=== PATIENT | female | born 1970 | race Caucasian/White ===

== ENCOUNTER → 2018-03-27 11:01 | Outpatient (CLI) | payer OTHER, SELFPAY ==
[2018-04-02 10:30] LABS: HPV Reflexed? NOT INDICATED
== END ==
PROVIDERS: Visit Provider Obstetrics & Gynecology
DX: R87.610 Atypical squamous cells of undetermined significance on cytologic smear of cervix (ASC-US) (principal)
CPT/HCPCS: 88175; G0145

== ENCOUNTER → 2018-07-26 14:58 | Outpatient (CLI) | payer OTHER, SELFPAY ==
[2017-08-03 10:26] VITALS: BMI 24.8
[2018-07-26 16:05] LABS: Hemoglobin A1c 6.1 % (4.2-6.3)
[2018-07-26 16:36] LABS: Progesterone Level 0.14 ng/mL (See Comment)
[2018-07-26 16:37] LABS: Estradiol 68.9 pg/mL; Free T3 2.9 pg/mL (2.18-3.98); T4 Free Direct 0.94 ng/dL (0.76-1.46); Thyroid Stim Hormone (TSH) 2.47 uIU/mL (0.358-3.74)
[2018-07-31 11:32] LABS: HPV Reflexed? NOT INDICATED
--- OUTSIDE RECORDS SUMMARY | 2018-10-30 06:13 | XMS RPT_ITS ---
:1970 Author Organization [email or web address] Address [address] [place] [address] Phone Care Team Providers Name Role Phone Jairo Torres MD Unavailable Reason for Visit Reason For Visit Description Start Date New - 1st visit with practice Preliminary reason for visit data, not yet signed by the author as of left wrist pain Preliminary reason for visit data, not yet signed by the author as of Chief Complaint Chief Complaint Description Start Date left wrist pain Preliminary chief complaint data, not yet signed by the author as of Instructions Instruction Description Start Date CompletedPatient advised to follow-up with Primary Care Physician for BMI management. Plan of Care Type Date Detail Appointment 08:15 AM Jairo Torres MD, [address] [address], [place], [address], Pending order XR WRIST 3 VWS-LT Medications Medication Instructions Start Date Stop Date Generic Name NDC Provider Observed no known medications at Conditions or Problems Problem Name Problem Onset Status Entry Provider Comment Standard Annotate Code Date Date Description Radial styloid M65.4 Active Jairo Tang Radial styloid tenosynovitis (ICD-10-C /21 05/03 Brian lugoosynovitis [Cabrera] Katy ANDERSON [Cabrera] Allergies, Adverse Reactions, Alerts Allergy Name Reaction Start Date Severity Status Provider Description PENICILLIN doesn't remember Critical Active Jairo Torres MD IODINE rash Critical Active Jairo Torres MD CODEINE PHOSPHATE skin crawls Critical Active Jairo Torres MD Social History Concept Description Observation Name Observation Value Units Start Date 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 social history data, not yet signed by the author as of Vital Signs Date Name Value Unit Description BMI (Body Mass 26.40 kg/m2 Body Mass Index Index) [Ratio] Preliminary vital sign data, not yet signed by the author as of BP Diastolic 73 mm[Hg] blood pressure, diastolic Preliminary vital sign data, not yet signed by the author as of BP Systolic 116 mm[Hg] blood pressure, systolic Preliminary vital sign data, not yet signed by the author as of Heart Rate 68 /min pulse rate E&M Preliminary vital sign data, not yet signed by the author as of Height 68 [in_us] height E&M Preliminary vital sign data, not yet signed by the author as of Height 173 cm height in centimeters E&M Preliminary vital sign data, not yet signed by the author as of Weight Measured 173 [lb_av] weight E&M Preliminary vital sign data, not yet signed by the author as of Weight Measured 79 kg weight in kilograms E&M Preliminary vital sign data, not yet signed by the author as of Results Date Name Value Unit Range Flag Description Office Visit: New - 1st visit with practice, Rm: MEDS REVIEW Done Documentation of current medications (procedure) Preliminary observation data, not yet signed by the author as of NKMED T Documentation of current medications (procedure) Preliminary observation data, not yet signed by the author as of Preliminary observation data, not yet signed by the author as of MRI HX of the left wrist MRI (magnetic on 03/06/2018 at [facility]) history Preliminary observation data, not yet signed by the author as of Clinical Summary: HMSPatientID SOP account number Clinical Lists Update: Preload Extended SMOK STATUS former smoker Tobacco smoking status MIIS Clinical Summary: Scanned History Summary DEPEXER FREQ 7 days per week Data entered by patient exercise frequency DEP EXERTYP walking Data entered by patient exercise type DEP EXERCISE Yes data entered by patient, exercise history DEP DRUG USE No data entered by patient, drug (of abuse) use DEP FSMO 2007 data entered by patient, social history, former smoker DEP CSMO former smoker data entered by patient, social history, current smoker DEP ETOH USE No data entered by patient, alcohol (ethanol or ETOH) use [facility] 3+ floors housing unit size (asthma environmental history, housing) (from single family to don't know) #DEP CHLDRN Yes Number of dependent children SWHOUTYPE house Housing Type: apartment, house, assisted, trailer, none DEP MAST data entered by patient, social history, marital status 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 data entered by [employer] patient, social history, occupation [employer]P EMPLOYER employed data entered by patient, Employer Name DEP ALG LIST CodeineIodinePenicillin Data entered by patient, allergy list SIS H COM as an infant medical history of patient's sister, comments [facility] COM PTST - Severe Depression medical history of patient's brother(s), comments BROTHERS PM AlcoholismArthritis medical history of patient's brother(s) DEATHCAU MOM murdered cause of , mother MOTHER A/D mother of patient is alive or DEP MOM PMH Alcoholism data entered by patient, mother's medical history FATHER A/D Alive father of patient is alive or DEP DAD PM ArthritisCOPDTuberculosis data entered by patient, father's medical history DEP PMH Cancer data entered by patient, past medical history DEP SURGERY Breast surgery other Data entered by patient, history of past surgeries Procedures Code Procedure Name Date Entry Date CPT-20826 Occupational Therapy L3808 [facility] CUSTOM STATIC CPT-90871 Tendon Sheath injection CPT-J0702 Injection - betamethasone acetate 3 mg and betamethasone sodium phosphate 3 mg G8730 Pain assessment documented as positive - follow-up documented G8427 Current medications documented 1036F Tobacco screening was negative - non user G8417 BMI documented as above normal parameters - follow-up documented G8783 Blood pressure within normal parameters - no follow-up required [id number] Patient Encounter Medications Administered No information available. Immunizations No information available. Advance Directives There may be information available, but it has not been provided by the sender. Assessments There may be information available, but it has not been provided by the sender. Review of Systems There may be information available, but it has not been provided by the sender. Family History There may be information available, but it has not been provided by the sender. History of Past Illness There may be information available, but it has not been provided by the sender. History of Present Illness There may be information available, but it has not been provided by the sender.
--- OUTSIDE RECORDS SUMMARY | 2018-10-30 06:14 | XMS RPT_ITS ---
:1970 Author Organization OHIP Care Team Providers Name Role Phone Clary Salmeron Attending Unavailable Clary Salmeron Attending Unavailable CORTNEY LAYNE Attending Unavailable CORTNEY LAYNE Primary Care Unavailable CORTNEY LAYNE Admitting Unavailable Josh Du Attending Unavailable [facility] Primary Care Unavailable Sarina Rojas Admitting Unavailable Sarina Rojas Attending Unavailable CORTNEY LAYNE Primary Care Unavailable Sarina Rojas Referring Unavailable Sarina Rojas Admitting Unavailable Sarina Rojas Attending Unavailable [facility] Primary Care Unavailable [facility] Consulting Unavailable Jesse Cui Attending Unavailable [facility] Primary Care Unavailable Jesse Cui Admitting Unavailable Jesse Cui Attending Unavailable [facility] Primary Care Unavailable Jesse Cui Admitting Unavailable Jesse Cui Admitting Unavailable Jesse Cui Attending Unavailable [facility] Primary Care Unavailable Jesse Cui Attending Unavailable [facility] Primary Care Unavailable Josee Kingston Attending Unavailable [facility] Primary Care Unavailable Josee Kingston Admitting Unavailable Bob TOBACCO PACKING MACHINE OPERATOR, Sarina Admitting Unavailable Bob BURKS, Sarina Attending Unavailable PROBLEMS PROBLEMS DATE TYPE CONDITION / CODE ATTENDING STATUS SOURCE 07/26/2018 Unknown Z12.4 - Encounter Clary Salmeron for screening for [facility] malignant neoplasm Hospital of cervix / Repository Z12.4(ICD-10) 07/26/2018 Unknown N92.6 - Irregular Clary Salmeron Active [place] menstruation, [facility] unspecified / Hospital N92.6(ICD-10) Repository 03/27/2018 Unknown R87.610 - Atypical Clary Salmeron squamous cells of [facility] undetermined Hospital significance on Repository cytologic smear of cervix (ASC-US) / R87.610(ICD-10) PROCEDURES PROCEDURES No Procedure Records FoundRESULTS RESULTS HEMOGLOBIN A1C Collected: 07/26/2018 Status: F Source: [place] 3:03 PM [facility] REPOSITORY TYPE CODE TESTS RESULT OUT OF RANGE REFERENCE UNITS LAB L501.9985 4.2-6.3 % Normal HGB A1C 6.1 Performed By: #### L501.9985 #### [facility] [address] [place], [place], [address] TESTOSTERONE, SERUM TOTAL Collected: 07/26/2018 Status: F Source: [place] 3:03 PM [facility] REPOSITORY TYPE CODE TESTS RESULT OUT OF REFERENCE UNITS RANGE LAB L509.3000 ng/dL Testosterone Normal 16.68 Result Comment: NORMAL REFERENCE RANGES MALE AGE <50 123.06 - 813.86 ng/dL MALE AGE >50 89.98 - 780.10 ng/dL FEMALE PREMENOPAUSE AGE 21 - 60 9.01 - 47.94 ng/dL FEMALE POSTMENOPAUSE AGE 45 - 89 <7.00 - 45.62 ng/dL REFERENCE RANGE AND METHODOLOGY CHANGED 08/01/2017 Performed By: #### L509.3000, L509.4001 #### [facility] [address] [place], [place], [address] PROGESTERONE LEVEL Collected: 07/26/2018 Status: F Source: [place] 3:03 PM [facility] REPOSITORY TYPE CODE TESTS RESULT OUT OF REFERENCE UNITS RANGE LAB L509.4001 See Comment ng/mL Progesterone Normal 0.14 Result Comment: Progesterone Reference Table: UNITS Female: Follicular 0.15 - 1.40 ng/mL Luteal 3.34 - 25.56 ng/mL Mid-luteal 4.44 - 28.03 ng/mL Postmenopausal 0.0 - 0.73 ng/mL : 1st Trimester 11.22 - 90.00 ng/mL 2nd Trimester 25.55 - 89.40 ng/mL 3rd Trimester 48.40 -422.50 ng/mL Performed By: #### L509.3000, L509.4001 #### [facility] [address] [place], [address] FREE T3 Collected: 07/26/2018 Status: F Source: [place] 3:03 PM [facility] REPOSITORY TYPE CODE TESTS RESULT OUT OF RANGE REFERENCE UNITS LAB L501.35278 2.18-3.98 pg/mL Normal FREE T3 2.9 Performed By: #### L501.29703, L501.9520, L506.0400, L3300.1750 #### [facility] [address] [place], [address] THYROID STIM HORMONE Collected: 07/26/2018 Status: F Source: [place] (TSH) 3:03 PM [facility] REPOSITORY TYPE CODE TESTS RESULT OUT OF RANGE REFERENCE UNITS LAB L501.9520 0.358-3.74 uIU/mL Normal TSH 2.47 Performed By: #### L501.48825, L501.9520, L506.0400, L3300.1750 #### [facility] [address] [place], [address] T4 FREE DIRECT Collected: 07/26/2018 Status: F Source: [place] 3:03 PM [facility] REPOSITORY TYPE CODE TESTS RESULT OUT OF RANGE REFERENCE UNITS LAB L506.0400 0.76-1.46 ng/dL Normal T4 FREE 0.94 DIRECT Performed By: #### L501.48821, L501.9520, L506.0400, L3300.1750 #### [facility] [address] [place], [address] ESTRADIOL Collected: 07/26/2018 Status: F Source: [place] 3:03 PM [facility] REPOSITORY TYPE CODE TESTS RESULT OUT OF RANGE REFERENCE UNITS LAB L3300.1750 pg/mL Normal ESTRADIOL 68.9 Result Comment: NORMAL REFERENCE RANGES FEMALE FOLLICULAR 21.4 - 164.8 pg/mL MID-CYCLE PEAK 49.9 - 367.2 pg/mL LUTEAL 40.2 - 259.0 pg/mL POST-MENOPAUSAL ON MHT <11.0 - 462.1 pg/mL NOT ON MHT <11.0 - 58.3 pg/mL MALE <11.0 - 52.5 pg/mL NOTE: [facility] HAS CONFIRMED THE DRUG FULVETRANT (FASLODEX) MAY CAUSE FALSELY ELEVATED ESTRADIOL RESULTS WHEN USING THIS TEST METHOD. IF PATIENT IS TAKING FULVESTRANT AN ALTERNATIVE METHOD SHOULD BE USED TO DETERMINE ESTRADIOL CONCENTRATION. Performed By: #### L501.93352, L501.9520, L506.0400, L3300.1750 #### [facility] [address] [place], [address] PAP I-G W/RFX HRHPV Collected: 07/26/2018 Status: F Source: [place] 2:15 PM [facility] REPOSITORY Order Comment: CYTOLOGY INFORMATION: - CLINICAL INFORMATION: - DATE LMP/MENOPAUSE: 07/23/18 LMP - COLLECTION VIAL: Thin Prep Vial - DISPATCHER TOW TRUCK SOURCE: CERVICAL/ENDOCERVICAL - COLLECTION TECHNIQUE: BRUSH/SPATULA Specimen Comment: [id number] Specimen Comment: Source.............Cervix;Endocervix Specimen Comment: LMP / Prev Treat...[id number] Specimen Comment: No. of containers..01 ThinPrep Vial TYPE CODE TESTS RESULT OUT OF RANGE REFERENCE UNITS LAB L7400.0800 . Normal DIAGN Comment Result Comment: NEGATIVE FOR INTRAEPITHELIAL LESION AND MALIGNANCY. LAB L7400.0900 . Normal ADEQ Comment Result Comment: Satisfactory for evaluation. Endocervical and/or squamous metaplastic cells (endocervical component) are present. LAB L7400.1400 . Normal PERFORM Comment Result Comment: Gloria Henderson Customer Acquisition Manager LAB L7400.2575 . Normal TEST METHOD Comment Result Comment: This liquid based ThinPrep(R) pap test was screened with the use of an image guided system. LAB L7400.2600 . Normal . COMM LAB L7400.2700 . Normal PAPSMR Comment Result Comment: The Pap smear is a screening test designed to aid in the detection of premalignant and malignant conditions of the uterine cervix. It is not a diagnostic procedure and should not be used as the sole means of detecting cervical cancer. Both false-positive and false-negative reports do occur. LAB L7400.2800 . Normal HPV RFLX Comment Result Comment: The HPV DNA reflex criteria were not met with this specimen result therefore, no HPV testing was performed. Performed at: - [facility]TE[place], [place] [id number] Roving Changer: Deysi Ferreira MD, Phone: [phone] Performed By: #### L7400.0350 #### [facility] (refer to report for specific site) refer to report for address and phone number PAP I-G W/RFX HRHPV Collected: 03/27/2018 Status: F Source: [place] 9:00 AM [facility] REPOSITORY Order Comment: CYTOLOGY INFORMATION: - CLINICAL INFORMATION: - DATE LMP/MENOPAUSE: 03/25/18 LMP - COLLECTION VIAL: Thin Prep Vial - DISPATCHER TOW TRUCK SOURCE: CERVICAL/ENDOCERVICAL - COLLECTION TECHNIQUE: BRUSH/SPATULA Specimen Comment: [id number] Specimen Comment: No. of containers..01 ThinPrep Vial TYPE CODE TESTS RESULT OUT OF RANGE REFERENCE UNITS LAB L7400.0800 . Normal DIAGN Comment Result Comment: NEGATIVE FOR INTRAEPITHELIAL LESION AND MALIGNANCY. LAB L7400.0900 . Normal ADEQ Comment Result Comment: Satisfactory for evaluation. Endocervical and/or squamous metaplastic cells (endocervical component) are present. LAB L7400.1400 . Normal PERFORM Comment Result Comment: Norah Mathews, Customer Acquisition Manager (ASCP) LAB L7400.2575 . Normal TEST METHOD Comment Result Comment: This liquid based ThinPrep(R) pap test was screened with the use of an image guided system. LAB L7400.2600 . Normal . COMM LAB L7400.2700 . Normal PAPSMR Comment Result Comment: The Pap smear is a screening test designed to aid in the detection of premalignant and malignant conditions of the uterine cervix. It is not a diagnostic procedure and should not be used as the sole means of detecting cervical cancer. Both false-positive and false-negative reports do occur. LAB L7400.2800 . Normal HPV RFLX Comment Result Comment: The HPV DNA reflex criteria were not met with this specimen result therefore, no HPV testing was performed. Performed at: - [facility] [place] [id number] Roving Changer: Deysi Ferreira MD, Phone: [phone] Performed By: #### L7400.0350 #### [facility] (refer to report for specific site) refer to report for address and phone number XR WRIST 3+ VIEWS Observed: 02/21/2018 Status: F Source: [place] LEFT 9:30 AM [facility] REPOSITORY Exam Date/Time: 02/21/2018 09:37 EDT Reason for Exam: LEFT WRIST PAIN Report STUDY: XR Wrist 3+ Views Left; 02/21/2018 9:37 am INDICATION: LEFT WRIST PAIN. COMPARISON: None. ACCESSION NUMBER(S): [id number] ORDERING CLINICIAN: Sarina Rojas TECHNIQUE: Four views of the left wrist including AP, oblique, navicular cone down and lateral projections were obtained. FINDINGS: There is no evidence of acute fracture or dislocation identified. The joint spaces are well preserved without significant degenerative changes. IMPRESSION: 1. No evidence of acute fracture or dislocation. FINAL REPORT Dictated: 02/21/2018 10:56 am Brayan Alvarado MD Signed (Electronic Signature): 02/21/2018 10:56 am Signed by: Brayan Alvarado MD Technologist: JANN ALLERGIES ALLERGIES DATE TYPE / CODE NAME / CODE REACTION SEVERITY SOURCE 07/31/2017 Drug Penicillins/P348381 Other Unknown [place] Allergy/416 476(RXNORM) [facility] 002809([facility] ED CT) Repository 07/31/2017 Drug iodine/[id number](R Rash Unknown [place] Allergy/416 XNORM) [facility] 261544([facility] ED CT) Repository 07/31/2017 Drug codeine/C371415805( Other Unknown [place] Allergy/416 RXNORM) [facility] 308965([facility] ED CT) Repository Drug/268043 codeine Itch [facility] 003([facility]) System Repository Drug/110775 penicillins ??? Hindu 003([facility]) System Repository Drug/854777 iodine Rash Hindu 003(OMED [facility]) System Repository Drug/761822 Antihistamine Itch Hindu 003([facility] CT) System Repository ENCOUNTERS ENCOUNTERS ADMIT/DISCHARGE ACCOUNT NUMBER ADMITTING ENCOUNTER LOCATION SOURCE CLASS 07/31/2018/ [id number] Josee Kingston Ambulatory [facility] Hindu 0[address] [facility] ng:[facility] Repository om: Room 5 07/26/2018 [id number] [facility] ng:WOBLAB Repository 05/23/2018/ [id number] Ambulatory Samariran Hindu 018 [facility] Medicine[facility]i Repository ng:SamOrtho 04/11/2018/ [id number] Cui, Ambulatory Samariran [facility] 018 Jesse [facility] MedicineBuildi Repository ng:HubertOrthoRoo m: Room 3 03/27/2018 [id number] [facility] ng:LABSPEC Repository 03/18/2018/ [id number] See, Ambulatory Hindu Hindu 018 [facility] ng:[facility] Repository 03/18/[id number] Repository 03/13/2018/ [id number] Ambulatory [facility] Hindu 018 [facility] ng:[facility] Repository 03/07/2018/ [id number] Cui, Ambulatory Samariran Hindu 018 Jesse [facility] MedicineBuildi Repository ng:HubertOrthoRoo m: Room 2 03/05/2018 [id number] Bob BURKS, Ambulatory [facility] Repository 02/28/[id number] [facility] ng:[facility] Repository 02/21/2018/ [id number] Bob [facility] [address] [place] [address] [facility] ng: Y Repository 02/21/2018 [id number] Ambulatory [address] [place] [address] Repository 02/04/2018/ [id number] [place], Ambulatory [facility] 018 [facility] Internal [facility] ng:[facility] Repository om: Room 2 PAYERS PAYERS ENCOUNTER GUARANTOR PAYER SUBSCRIBER SOURCE 07/31/2018 ANITA Garcia Primary Insurance:Tito LARSONB: [facility]: [facility] Number: Effective [id number] [facility] Date:2018-07-31 - [place], [place] [id number] [place] [address]Hpi: Name:CD:[id number] [phone]: [address] [place] [address] () [address]WK: ([phone]) () [phone] () 07/26/2018 Anita Garcia Primary HUTPETRONA Doll [id number] Insurance[facility]: [facility] [id number] Number: Repository [id number]: [phone] [id number] [phone] () Date:2908-57-64FE [address] [place], [place] [address]: 07/26/2018 Secondary NOT GIVENUNK [place] Insurance:SELF PAY [facility] Number: Effective Repository Date:2018-07-26 05/23/2018 ANITA Garcia Primary Insurance:Tito LARSONB: [facility]: [facility] Number: Effective [id number] System [place] Date:2018-04-11 - [place], [place] [id number] [place] [address]Hyi: Name:CD:[id number] [phone]: [address] [place] [address] (HP) [phone]: [phone]) (HP) [phone] (WP) 04/11/2018 ANITA Garcia Primary Insurance:1500 ANITA Bairestan WOODWARDDOB: WORKER'S COMPENSATION WOODWARDB: [facility] - [facility] Number: [id number] [facility] Effective [place] Repository [place] Date:2018-04-11 [place] [address]Csa: [id number] [address]Nst: Name:CD:[id number] (HP) (HP) (WP) 03/27/2018 Anita Radha Primary HUT [place] [id number] Insurance:[facility]: [facility] [id number], [place] Number: Repository [id number]: [phone]) [id number] [phone] () Date:5310-39-60DD [address] [place] [phone]: 03/27/2018 Secondary [facility] [place] Insurance:SELF PAY [facility] Number: Effective Repository Date:2018-03-27 03/18/2018 ANITA Radha Primary ANITA Clifford [facility]: Insurance:[facility]: [facility] Number: Effective [id number] [facility] Date:2018-03-13 - [place] Repository [place] [id number] [place] [address]Wwl: Name:Worker's [phone]: [id number] () [place], [place] ()Tel: [phone]: [phone] (WP) 03/18/2018 ANITA Primary ANITA University [facility]: Insurance:[employer]rial[employer] [facility]: Hospitals licy Number: [id number] [facility] [id number] [place], [place] Date:Plan Name:[place], [place] [id number]: [id number]: (HP) (HP) 03/13/2018 ANITA D Primary Insurance:1500 [facility] A [facility]B: [facility]: [facility] Number: Effective [id number] [facility] Date:2018-02-04 - [place], [place] [id number] [place] [address]Cff: Name:CD:[id number]: [address] [place] [address] (HP) [phone]: [phone]) (HP) [phone] (WP) 03/07/2018 ANITA D Primary Insurance:1500 ANITA [facility]: WORKER'S COMPENSATION [facility]: [facility] - BWCPolicy Number: [id number] [facility] Effective [place], [place] Date:2018-03-07 [place] [address]Irx: [id number] [id number]: Name:CD:[id number] (HP) (HP) (WP) 03/05/2018 Primary ANITA D [facility] Insurance:Health [facility]: [facility] [id number] [facility] Number: [place] Repository [id number], [place] Date:Plan [address]Ubx: (600) Name:[place] [phone] () [place] [address]PH: 02/28/2018 ANITA Garcia Primary ANITA Garcia [facility]: Insurance:[facility]: [facility] Number: Effective [id number] System [place] Date:2018-02-28 - [place], [place] [id number] [place] [address]Iiq: Name:Worker's [phone]: Compensation () () (WP) 02/21/2018 ANITA Garcia Primary ANITA Garcia [facility]: Insurance:[facility]: [facility] Number: Effective [id number] System [place] Date:2018-02-21 - [place], [place] [id number] [place] [address]Mqt: Name:Worker's [phone]: [id number] () [place], [place] ()Tel: [phone]: [phone] () 02/21/2018 ANITA Garcia Primary ANITA Garcia [facility]: Insurance:[facility]: [facility] licy Number: [id number] [facility] [id number] [place], [place] Date:Plan Name:[place], [place] [id number]: [phone]: () () 02/04/2018 ANITA Garcia Primary Insurance:[address] [place] [address]: [facility]ICAL [facility]: [facility] Number: Effective [id number] [facility] Date:2018-02-04 - [place], [place] 8680-85-25[place]eqqWells, [place] [address]Cdw: Name:CD:[id number] [phone]: [address], [place] () [address]VN: [phone]) () [phone] ()
--- OUTSIDE RECORDS SUMMARY | 2018-10-30 06:14 | XMS RPT_ITS ---
:1970 Author Organization [employer] Address [address] [place] [address] Phone Care Team Providers Name Role Phone Jairo Torres MD Unavailable Reason for Visit Reason For Visit Description Start Date Workers Comp - follow-up by complaint Preliminary reason for visit data, not yet [...] Plan of Care Type Date Detail Appointment 09:15 AM Jairo Torres MD, [address] [facility], [address], [place], [address], Appointment 09:30 AM Jairo Torres MD, [address] [facility], [address], [place], [address], Medications Medication Instructions Start Date Stop Date Generic Name NDC Provider Observed no known medications at Conditions or Problems Problem Name Problem Onset Status Entry Provider Comment Standard Annotate Code Date Date Description Primary M19.042 Active Jairo Tang Primary osteoarthritis (ICD-10-C /14 08/26 Brian osteoarthritis left hand M) , left hand Primary M19.041 Active Jairo Tang Primary osteoarthritis (ICD-10-C /14 08/26 Brian osteoarthritis right hand M) , right hand Radial styloid M65.4 Active 2018 Jairo Tang Radial styloid tenosynovitis (ICD-10-C /21 05/03 Brian tenosynovitis [de Quervakevin] Katy ANDERSON [Cabrera] Allergies, Adverse Reactions, Alerts Allergy Name Reaction Start Date Severity Status Provider Description PENICILLIN doesn't remember Critical Active Jairo Torres MD IODINE rash Critical Active Jairo Torres MD CODEINE PHOSPHATE skin crawls Critical Active Jairo Torres MD Social History No information available. Vital Signs Date Name Value Unit Description BMI (Body Mass 26.40 kg/m2 Body Mass Index Index) [Ratio] Preliminary vital sign data, not yet signed by the author as of BP Diastolic 78 mm[Hg] blood pressure, diastolic Preliminary vital sign data, not yet signed by the author as of BP Systolic 119 mm[Hg] blood pressure, systolic Preliminary vital sign data, not yet signed by the author as of Heart Rate 74 /min pulse rate E&M Preliminary vital sign [...] Unit Range Flag Description Office Visit: New Complaint, Rm: MEDS REVIEW Done Documentation of current medications (procedure) Office Visit: Workers Comp - follow-up by complaint, Rm: MEDS REVIEW Done Documentation of current medications (procedure) Preliminary observation data, not yet signed by the author as of Preliminary observation data, not yet signed by the author as of Clinical Summary: HMSPatientID SOP account number SOP account number Procedures Code Procedure Name Date Entry Date CPT-98472 Tendon Sheath injection CPT-J0702 Injection - betamethasone acetate 3 mg and betamethasone sodium phosphate 3 mg G8730 Pain assessment documented as positive - follow-up documented G8427 Current medications documented 1036F Tobacco screening was negative - non user G8417 BMI documented as above normal parameters - follow-up documented G8783 Blood pressure within normal parameters - no follow-up required [facility]-[id number] Patient Encounter Medications Administered No information available. [...]
--- OUTSIDE RECORDS SUMMARY | 2018-10-30 06:14 | XMS RPT_ITS ---
:1970 Author Organization [employer] Address [address] [place] [address] Phone Care Team Providers Name Role Phone Jairo Torres MD Unavailable Reason for Visit Reason For Visit Description Start Date New Complaint Preliminary reason for visit data, not yet signed by the author as of bilateral hand pain Preliminary reason for visit data, not yet signed by the author as of Chief Complaint Chief Complaint Description Start Date bilateral hand pain Preliminary chief complaint data, not yet signed by the author as of Instructions Instruction Description Start Date CompletedPatient advised to follow-up with Primary Care Physician for BMI management. Plan of Care Type Date Detail Appointment 09:15 AM Jairo Torres MD, [address] [facility], [address], [place], [address], Appointment 09:30 AM Jairo Torres MD, [address] [facility], [address], [place], [address], Pending order XR HAND 3+ VWS-RT Pending order XR HAND 3+ VWS-LT Medications Medication Instructions Start Date Stop [...] , right hand Radial styloid M65.4 Active Jairo Tang Radial styloid tenosynovitis (ICD-10-C 05/03 Brian tenosynovitis [de Quervain] M) [de Quervain] Allergies, Adverse Reactions, Alerts Allergy Name Reaction Start Date Severity Status Provider Description PENICILLIN doesn't remember Critical Active Jairo Torres MD IODINE rash Critical Active Jairo Torres MD CODEINE PHOSPHATE skin crawls Critical Active Jairo Torres MD Social History Concept Description Observation Name Observation Value Units Start Date 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 [...]
== END ==
PROVIDERS: Visit Provider Obstetrics & Gynecology
DX: N92.6 Irregular menstruation, unspecified (principal); Z12.4 Encounter for screening for malignant neoplasm of cervix
CPT/HCPCS: 36415; 82670; 83036; 84144; 84403; 84439; 84443; 84481; 88175; G0145

== ENCOUNTER → 2018-09-21 07:53 | Outpatient (CLI) | payer OTHER, SELFPAY ==
--- NOTE | 2018-09-21 08:05 | BI_ITS ---
MAMMOGRAPHY - BILATERAL SCREENING REASON FOR EXAM: Female, 48 years old. Routine annual screening examination. PERTINENT HISTORY: Personal history of breast cancer. Prior left lumpectomy. TECHNIQUE: Digital bilateral breast martinez (3D mammographic acquisition) in the CC and MLO projections. 2-D mediolateral oblique (MLO) and craniocaudad (CC) views of both breasts were obtained. CAD: Full Field Digital Mammography with Computer Added Detection was performed. COMPARISON: Comparison is made with prior examination dated August 21, 2017. FINDINGS: Breast Composition: There are scattered areas of fibroglandular density. There are no dominant masses or suspicious calcifications. The patient is status post lumpectomy in the upper lateral portion of the left breast. Stable postoperative change. No new mass lesion or cluster of microcalcification is seen. Stable benign-appearing bilateral axillary lymph nodes. No other significant abnormalities are identified. There has been no significant change since the prior study. BI/SCREENING MAMM (CAD), BILAT IMPRESSION: Stable bilateral screening mammogram. Yearly follow-up mammogram recommended. (A) ASSESSMENT CATEGORY: BIRADS Category 2: Benign. A letter regarding these results will be sent to the patient by the facility within 30 days. Approximately 10% of breast cancers are not detected by mammography. A normal mammogram should not delay biopsy of a clinically suspicious abnormality. [id number] Electronically Signed: Cole Evans MD at 9:29 EST , Service support ,
== END ==
PROVIDERS: Referring Provider Obstetrics & Gynecology; Visit Provider Obstetrics & Gynecology
DX: Z12.31 Encounter for screening mammogram for malignant neoplasm of breast (principal)
CPT/HCPCS: 77063; 77067

== ENCOUNTER → 2019-08-22 17:58 | Outpatient (CLI) | payer OTHER, SELFPAY ==
[2019-08-27 13:20] LABS: HPV APTIMA, High Risk Negative (Negative)
== END ==
PROVIDERS: Visit Provider Obstetrics & Gynecology
DX: Z12.4 Encounter for screening for malignant neoplasm of cervix (principal)
CPT/HCPCS: 87624; 88175; G0145

== ENCOUNTER → 2019-10-17 10:41 | Outpatient (CLI) | payer OTHER, SELFPAY ==
[2017-08-03 10:26] VITALS: BMI 24.8
--- NOTE | 2019-10-17 10:43 | BI_ITS ---
MAMMOGRAPHY - BILATERAL SCREENING REASON FOR EXAM: Female, 49 years old. Routine annual screening examination. PERTINENT HISTORY: Personal history of breast cancer. Prior left lumpectomy and radiation therapy. TECHNIQUE: Digital bilateral breast edward (3D mammographic acquisition) in the CC and MLO projections. 2-D mediolateral oblique (MLO) and craniocaudad (CC) views of both breasts were obtained. CAD: Full Field Digital Mammography with Computer Added Detection was performed. COMPARISON: Comparison is made with prior examination of September 21, 2018. FINDINGS: Breast Composition: The breasts are heterogeneously dense, which may obscure small masses. There are no dominant masses or suspicious calcifications. Once again, the patient is status post left lumpectomy in the upper lateral portion of left breast. Stable postoperative scarring. Stable appearance of small bilateral axillary lymph nodes. No other significant abnormalities are identified. There has been no significant change since the prior study. BI/SCREEN MAMM (CAD) W/EDWARD BILAT IMPRESSION: Stable bilateral screening mammogram. Yearly follow-up mammogram recommended. (A) ASSESSMENT CATEGORY: BIRADS Category 2: Benign. A letter regarding these results will be sent to the patient by the facility within 30 days. Approximately 10% of breast cancers are not detected by mammography. A normal mammogram should not delay biopsy of a clinically suspicious abnormality. [id number] Electronically Signed: Cole Evans, at 13:10 EST , Service support ,
== END ==
PROVIDERS: Referring Provider Obstetrics & Gynecology; Visit Provider Obstetrics & Gynecology
DX: Z12.31 Encounter for screening mammogram for malignant neoplasm of breast (principal)
CPT/HCPCS: 77063; 77067

== ENCOUNTER → 2020-03-15 10:37 | Outpatient (CLI) | payer OTHER, SELFPAY ==
[2017-08-03 10:26] VITALS: BMI 24.8
[2020-03-15 11:04] LABS: Hematocrit 42.3 % (37-47); Hemoglobin 13.7 g/dL (12.0-15.0); Mean Corp Hgb Conc 32.4 g/dL (32-36); Mean Corpuscular Hgb 29.7 pg (27.0-32.0); Mean Corpuscular Volume 91.6 fL (81-99); Mean Platelet Vol. 9.6 fl (6.2-12.0); Platelet Count 268 K/mm3 (150-450); RBC Distribution Width CV 12.8 % (11.6-14.6); RBC Distribution Width SD 41.9 fl (35.1-43.9); Red Blood Count 4.62 M/mm3 (4.2-5.4); White Blood Count 8.9 K/mm3 (4.4-11.0)
[2020-03-15 11:36] LABS: Progesterone Level 1.19 ng/mL (See Comment); T3 Total - Triiodothyronine 1.24 ng/mL (0.6-1.81); Vitamin B12 376 pg/mL (211-911); Vitamin D,25 Hydroxy 48.6 ng/mL
[2020-03-15 11:55] LABS: Estradiol 46.1 pg/mL; Free T3 2.9 pg/mL (2.18-3.98); T4 Free Direct 0.92 ng/dL (0.76-1.46); Thyroid Stim Hormone (TSH) 3.15 uIU/mL (0.358-3.74)
[2020-03-16 16:59] LABS: Sex Hormone-binding Globulin 31.7 nmol/L (24.6-122.0)
== END ==
PROVIDERS: PCP Physician Assistant Medical; Referring Provider Obstetrics & Gynecology; Visit Provider Obstetrics & Gynecology
DX: E53.9 Vitamin B deficiency, unspecified (principal); N94.3 Premenstrual tension syndrome; E03.9 Hypothyroidism, unspecified
CPT/HCPCS: 36415; 82306; 82607; 82627; 82670; 82746; 84144; 84270; 84403; 84439; 84443; 84480; 84481; 85027; 82626

== ENCOUNTER → 2021-04-01 10:43 | Outpatient (CLI) | payer OTHER, SELFPAY ==
--- NOTE | 2021-04-01 10:45 | BI_ITS ---
MAMMOGRAPHY - BILATERAL SCREENING REASON FOR EXAM: Female, 51 years old. Routine annual screening examination. PERTINENT HISTORY: Personal history of breast cancer. Prior left lumpectomy with radiation treatment. TECHNIQUE: Digital bilateral breast edward (3D mammographic acquisition) in the CC and MLO projections. 2-D mediolateral oblique (MLO) and craniocaudad (CC) views of both breasts were obtained. CAD: Full Field Digital Mammography with Computer Added Detection was performed. COMPARISON: Comparison is made with prior study of 10/17/2019 and 09/21/2018. FINDINGS: Breast Composition: The breasts are heterogeneously dense, which may obscure small masses. There are no dominant masses or suspicious calcifications. The patient is status post left lumpectomy in the upper lateral aspect of the left breast. Stable postoperative scarring. Stable small benign-appearing bilateral axillary lymph nodes. No other significant abnormalities are identified. There has been no significant change since the prior study. BI/SCRN MAMM (CAD)W/EDWARD BILAT IMPRESSION: Stable bilateral screening mammogram. Yearly follow-up mammogram recommended. (A) ASSESSMENT CATEGORY: BIRADS Category 2: Benign. A letter regarding these results will be sent to the patient by the facility within 30 days. Approximately 10% of breast cancers are not detected by mammography. A normal mammogram should not delay biopsy of a clinically suspicious abnormality. [id number] Electronically Signed: Cole Evans MD at 12:27 EDT , Service support ,
== END ==
LOC: OPBI 10:44
PROVIDERS: PCP Physician Assistant Medical; Referring Provider Obstetrics & Gynecology; Visit Provider Obstetrics & Gynecology
DX: Z12.31 Encounter for screening mammogram for malignant neoplasm of breast (principal)
CPT/HCPCS: 77063; 77067

== ENCOUNTER → 2022-08-10 | Outpatient (CLI) | payer OTHER, SELFPAY ==
--- NOTE | 2022-08-10 08:41 | BI_ITS ---
MAMMOGRAPHY - BILATERAL SCREENING REASON FOR EXAM: Female, 52 years old. Routine annual screening examination. PERTINENT HISTORY: Personal history of breast cancer. Prior left lumpectomy status post radiation. TECHNIQUE: Digital bilateral breast edward (3D mammographic acquisition) in the CC and MLO projections. 2-D mediolateral oblique (MLO) and craniocaudad (CC) views of both breasts were obtained. CAD: Full Field Digital Mammography with Computer Added Detection was performed. COMPARISON: 04/01/2021, 10/17/2019. FINDINGS: Breast Composition: The breasts are heterogeneously dense, which may obscure small masses. There are no dominant masses or suspicious calcifications. Stable left breast lumpectomy postoperative changes. No other significant abnormalities are identified. There has been no significant change since the prior study. BI/SCRN MAMM (CAD)W/EDWARD BILAT IMPRESSION: Stable bilateral screening mammogram. Yearly follow-up mammogram recommended. (A) ASSESSMENT CATEGORY: BIRADS Category 2: Benign. A letter regarding these results will be sent to the patient by the facility within 30 days. Approximately 10% of breast cancers are not detected by mammography. A normal mammogram should not delay biopsy of a clinically suspicious abnormality. Electronically Signed: Dejuan Simon, at 16:40 EST ,
== END | disposition home or self-care (01) ==
LOC: OPBI 08:37
PROVIDERS: PCP Physician Assistant Medical; Visit Provider Student in an Organized Health Care Education/Training Program
DX: Z12.31 Encounter for screening mammogram for malignant neoplasm of breast (principal); Z85.3 Personal history of malignant neoplasm of breast
CPT/HCPCS: 77063; 77067

== ENCOUNTER → 2023-08-24 | Outpatient (CLI) | payer OTHER, SELFPAY ==
--- NOTE | 2023-08-24 10:31 | BI_ITS ---
MAMMOGRAPHY - BILATERAL SCREENING REASON FOR EXAM: Female, 53 years old. Routine annual screening examination. PERTINENT HISTORY: Personal history of breast cancer. Prior left lumpectomy with radiation therapy. TECHNIQUE: Digital bilateral breast edward (3D mammographic acquisition) in the CC and MLO projections. 2-D mediolateral oblique (MLO) and craniocaudad (CC) views of both breasts were obtained. CAD: Full Field Digital Mammography with Computer Added Detection was performed. COMPARISON: Comparison is made with prior study dated August 10, 2022 and April 01, 2021. FINDINGS: Breast Composition: The breasts are heterogeneously dense, which may obscure small masses. There are no dominant masses or suspicious calcifications. The patient is status post lumpectomy in the upper outer aspect of the left breast. No other significant abnormalities are identified. There has been no significant change since the prior study. BI/SCRN MAMM (CAD)W/EDWARD BILAT IMPRESSION: Stable bilateral screening mammogram. Yearly follow-up mammogram recommended. (A) ASSESSMENT CATEGORY: BIRADS Category 2: Benign. A letter regarding these results will be sent to the patient by the facility within 30 days. Approximately 10% of breast cancers are not detected by mammography. A normal mammogram should not delay biopsy of a clinically suspicious abnormality. [id number] Electronically Signed: Cole Evans MD at 11:24 EST ,
--- OUTSIDE RECORDS SUMMARY | 2023-08-24 11:02 | XMS RPT_ITS | CCD ---
Author Name Unknown Address [address] [place] [address] Organization [facility] Care Team Providers Care Senior Environmental Consultant Name Role Phone Sarina Rojas Unavailable Unavailable Sarina Rojas Unavailable Unavailable CORTNEY CAR Attending Unavailable JOSEP CORTNEY B Primary Care Unavailable CORTNEY CAR B Admitting Unavailable Josh Du Attending Unavailable AIMS, CLINIC Primary Care Unavailable Sarina Rojas Admitting Unavailable Sarina Rojas Attending Unavailable CORTNEY CAR Primary Care Unavailable Sarina Rojas Referring Unavailable Sarina Rojas Admitting Unavailable Sarina Rojas Attending Unavailable [facility]IM[facility], CLINIC Primary Care Unavailable [facility]IM[facility], CLIN[facility] Consulting Unavailable Jesse Cui Attending Unavailable [...] Primary Care Unavailable Josee Kingston Admitting Unavailable Josee Kingston Attending Unavailable Josee Kingston D Admitting Unavailable JOSEP, CORTNEY B Primary Care Unavailable JOSEP CORTNEY B Attending Unavailable JOSEP CORTNEY B Primary Care Unavailable JOSEP CORTNEY B Attending Unavailable JOSEP, CORTNEY B Primary Care Unavailable JOSEP, CORTNEY B Attending Unavailable JOSEP, CORTNEY B Primary Care Unavailable CORTNEY CAR NAVI Admitting Unavaila ble JOSEP CORTNEY NAVI Primary Care Unavaila ble Cortney Car B Unavailable Unavailable Unavailable Cortney Car Unavailable [phone] Alex Barton Unavailable Unavailable Toni Peter Unavailable MICHAEL KOROMA Admitting Unavailable MICHAEL KOROMA Referring Unavailable [place], CORTNEY [facility] Care Unavaila ble MICHAEL KOROMA Attending Unavailable JOSEP, [facility] Care Unavaila ble [place], Ms. [facility] Care Unav ailable GABITONI LESTER Attending Unavailable [place], Ms. Cortney Sparksh Referring Unav ailable [place], Ms. Cortney Sparksh Attending Unav ailable [place], Ms. [facility] Primary Care Unav ailable [place], Ms. Cortney Sparksh Referring Unav ailable Jose[place], Ms. Cortney Sparksh Attending Unav ailable [place], Ms. [facility] Primary Care Unav ailable [place], Ms. Cortney Sparksh Referring Unav ailable [place], Ms. [facility] Care Unav ailable [place], Dr. Tristan Cash Attending Unavaila ble [place], Ms. [facility] Primary Care Unav ailable [place], Dr. Tristan Cash Attending Unavaila ble [place], Dr. Tristan Cash Attending Unavaila ble [place], Ms. [facility] Care Unav ailable [place], Dr. Tristan Cash Attending Unavaila ble [place], . [facility] Care Unav ailable [place], Dr. Tristan Cash Attending Unavaila ble [place], Ms. [facility] Primary Care Unav ailable [place], Dr. Tristan Cash Attending Unavaila ble [place], Ms. [facility] Care Unav ailable [place], Dr. Tristan Cash Attending Unavaila ble [place], Ms. [facility] Primary Care Unav ailable [place], Ms. [facility] Primary Care Unav ailable [place], Ms. Cortney Sparksh Attending Unav ailable [place], Dr. Tristan Cash Attending Unavaila ble [place], Ms. [facility] Care Unav ailable [place], Dr. Tristan Cash Attending Unavaila ble [place], Ms. [facility] Care Unav ailable [place], Ms. Cortney Yip Primary Care UnaDr. Tristan Schumacher Attending [facility] Allergies Allergy Classification Reported Allergen(s) Allergy Type Date of Onset Reaction(s) Facility Iodine (and Iodine containting drugs) (2 sources) Iodine; Translations: [iodine] Drug Allergy [facility] Work Phone: Opioid Agonists (2 sources) Codeine; Translations: [codeine] Drug Allergy [facility] Work Phone: Penicillins (antibiotic) (2 sources) Penicillins; Translations: [Penicillins] Drug Allergy [facility] Work Phone: Unclassified (20 sources) Antihistamine TABS; Translations: [Antihistamine TABS] Allergy to drug (finding) [facility] Work Phone: (1 source) Antihistamines; Translations: [Antihistamine] Propensity to adverse reactions to drug (disorder) [facility] Repository (20 sources) Codeine; Translations: [codeine] Drug Allergy 3 [facility] Repository (20 sources) Iodine; Translations: [iodine] Drug Allergy 3 [facility] Repository (20 sources) Penicillins; Translations: [penicillins] Propensity to adverse reactions to drug (disorder) 6 Unknown [facility] Repository (1 source) diphenhydrAMINE Drug Allergy Other [facility] Medications Current Medications Medication Drug Class(es) Dates Sig (Normalized) Sig (Original) azithromycin 250 mg oral tablet (4 sources) Macrolide Antimicrobial Start: 08-10-2021 take 2 tablets by mouth once, then take 1 tablet by mouth once daily azithromycin 250 mg oral tablet ; Take 2 tabs (500mg) x 1 days, then 1 tab (250mg) once daily x 4 days Quantity: 6 Refills: 0 Ordered: 10-Aug-2021 Alex Barton Start: 10-Aug-2021 Generic Substitution Allowed Comments: Do not take dairy products, antacids, or iron preparations within one hour of this medication.Finish all this medication unless otherwise directed by prescriber. Completed/Discontinued Medications Medication Drug Class(es) Dates Sig (Normalized) Sig (Original) [id number] 200 actuat albuterol 0.09 mg/actuat metered dose inhaler (3 sources) beta2-Adrenergic Agonist Start: 10-13-2021 Albuterol Sulfate HFA 108 (90 Base) MCG/ACT Inhalation Aerosol Solution Quantity: 8 Refills: 0 Ordered: 13-Oct-2021 DO Start : 13-Oct-2021 Complete busPIRone hydrochloride 10 mg oral tablet (20 sources) Start: 05-31-2022 take 1 tablet by mouth three times daily busPIRone HCl - 10 MG Oral Tablet TAKE 1 TABLET 3 TIMES DAILY. Quantity: 270 Refills: 1 Ordered: 29-Jun-2022 Cortney Car PA-C Start : 31-May-2022 Active Problems Active Problems Problem Classification Problem Date Documented Date Episodic/Chronic Anxiety disorders (20 sources) Mixed anxiety and depressive disorder; Translations: [Anxiety state, unspecified] Chronic Cancer of breast (20 sources) Malignant neoplasm of female breast; Translations: [Malignant neoplasm of breast (female), unspecified] Chronic Cardiac dysrhythmias (20 sources) Palpitations; Translations: [Palpitations] Onset: 07-21-2022 Episodic Diabetes mellitus without complication (20 sources) Hyperglycemia; Translations: [Impaired fasting glucose] Episodic Endometriosis (20 sources) Endometriosis (clinical); Translations: [Endometriosis, site unspecified] Chronic Genitourinary symptoms and ill-defined conditions (20 sources) Incomplete emptying of bladder; Translations: [Incomplete bladder emptying] Episodic Headache; including migraine (2 sources) Headache; including migraine 08-10-2021 Past or Other Problems Problem Classification Problem Date Documented Date Episodic/Chronic Residual codes; unclassified (20 sources) Past history of procedure; Translations: [Other postprocedural status] Onset: 08-10-2022 Resolved: 05-26-2016 Episodic Results Test Name Value Interpretation Reference Range Facil ity Vital Signs Date Time Vital Sign Value Performing Clinician Facility 06-29-2022 08:58-0500 Body height 172.72 cm Cortney Car Work Phone: [facility] Work Phone: 06-29-2022 08:58-0500 Body mass index (BMI) [Ratio] 27.37 kg/m2 Cortney Gregoryall Work Phone: [facility] Work Phone: 06-29-2022 08:58-0500 Body surface area Derived from formula 1.95 m2 Cortney Gregoryall Work Phone: [facility] Work Phone: 06-29-2022 08:58-0500 Body weight 81.65 kg Cortney Gregoryall Work Phone: [facility] Work Phone: 06-29-2022 08:58-0500 Diastolic blood pressure 74 mm[Hg] Cortney Gregoryall Work Phone: [facility] Work Phone: 06-29-2022 08:58-0500 Systolic blood pressure 110 mm[Hg] Cortney Gregoryall Work Phone: [facility] Work Phone: 05-31-2022 09:38-0400 Body height 172.72 cm Cortney Car Work Phone: [facility] Work Phone: 05-31-2022 09:38-0400 Body mass index (BMI) [Ratio] 27.07 kg/m2 Cortney Car Work Phone: [facility] Work Phone: 05-31-2022 09:38-0400 Body surface area Derived from formula 1.95 m2 Cortnye Gregoryall Work Phone: [facility] Work Phone: 05-31-2022 09:38-0400 Body weight 80.74 kg Cortney Gregoryall Work Phone: [facility] Work Phone: 05-31-2022 09:38-0400 Diastolic blood pressure 71 mm[Hg] Cortney Gregoryall Work Phone: [facility] Work Phone: 05-31-2022 09:38-0400 Heart rate 79 /min Cortney Car Work Phone: [facility] Work Phone: 05-31-2022 09:38-0400 Systolic blood pressure 114 mm[Hg] Cortney Cra Work Phone: [facility] Work Phone: 08-18-2021 15:46-0500 Body height 172.72 cm [facility] Work Phone: 08-18-2021 15:46-0500 Body mass index (BMI) [Ratio] 26.61 kg/m2 Cortney Car [facility] Work Phone: 08-18-2021 15:46-0500 Body surface area Derived from formula 1.93 m2 Cortney Car Work Phone: [facility] 120 Work Phone: 08-18-2021 15:46-0500 Body temperature 98.8 [degF] [facility] Work Phone: 08-18-2021 15:46-0500 Body weight 79.38 kg Cortney Car [facility] Work Phone: 08-18-2021 15:46-0500 Diastolic blood pressure 78 mm[Hg] [facility] Work Phone: 08-18-2021 15:46-0500 Respiratory rate 16 /min Cortney Car Work Phone: [facility] Work Phone: 08-18-2021 15:46-0500 Systolic blood pressure 110 mm[Hg] Cortney Car Work Phone[facility] Work Phone: 08-10-2021 15:06-0500 Body height 171 cm Cortney Car Other Phone: [facility] 08-10-2021 15:06-0500 Body temperature 97.16 [degF] Cortney Car Other Phone: [facility] 08-10-2021 15:06-0500 Diastolic blood pressure 71 mm[Hg] Cortney Car Other Phone: [facility] 08-10-2021 15:06-0500 Heart rate 100 /min Cortney Car Other Phone: [facility] 08-10-2021 15:06-0500 SaO2% (BldA) [Mass fraction] 97 % Cortney Car Other Phone: [facility] 08-10-2021 15:06-0500 Systolic blood pressure 129 mm[Hg] Cortney Car Other Phone: [facility] 05-05-2021 10:30-0400 Body height 172.72 cm Cortney Car Work [facility] Work Phone: 05-05-2021 10:30-0400 Body mass index (BMI) [Ratio] 26.46 kg/m2 Cortney Car Work Phone: [facility] Work Phone: 05-05-2021 10:30-0400 Body surface area Derived from formula 1.93 m2 Cortney Car Work Phone: [facility] 120 Work Phone: 05-05-2021 10:30-0400 Body temperature 96.2 [degF] Cortney Car Work Phone: [facility] Work Phone: 05-05-2021 10:30-0400 Body weight 78.93 kg Cortney Car Work Phone: [facility] Work Phone: 05-05-2021 10:30-0400 Diastolic blood pressure 82 mm[Hg] Cortney Car Work Phone: [facility] Work Phone: 05-05-2021 10:30-0400 Systolic blood pressure 120 mm[Hg] Cortney Car Work Phone: [facility] Work Phone: 03-17-2021 14:03-0400 Body height 172.72 cm Cortney Car Work Phone: [facility] Work Phone: 03-17-2021 14:03-0400 Body mass index (BMI) [Ratio] 26.46 kg/m2 Cortney Car Work Phone: [facility] Work Phone: 03-17-2021 14:03-0400 Body surface area Derived from formula 1.93 m2 Cortney Car Work Phone: [facility] Work Phone: 03-17-2021 14:03-0400 Body weight 78.93 kg Cortney Car Work Phone: [facility] Work Phone: 03-17-2021 14:03-0400 Diastolic blood pressure 72 mm[Hg] Cortney Gregoryall [facility] Work Phone: 03-17-2021 14:03-0400 Systolic blood pressure 110 mm[Hg] Cortney Gregoryall [facility] Work Phone: 01-05-2021 08:15-0400 Body height 172.72 cm Cortney Gregoryall Work Phone: [facility] Work Phone: 01-05-2021 08:15-0400 Body mass index (BMI) [Ratio] 26.46 kg/m2 Cortney Car Work Phone: [facility] Work Phone: 01-05-2021 08:15-0400 Body surface area Derived from formula 1.93 m2 Cortney Car Work Phone: [facility] Work Phone: 01-05-2021 08:15-0400 Body weight 78.93 kg Cortney Car Work Phone: [facility] Work Phone: 01-05-2021 08:15-0400 Diastolic blood pressure 76 mm[Hg] Cortney Gregoryall Work Phone: [facility] Work Phone: 01-05-2021 08:15-0400 Heart rate 76 /min Cortney Gregoryall Work Phone: [facility] Work Phone: 01-05-2021 08:15-0400 Systolic blood pressure 108 mm[Hg] Cortney Buenoenhall Work Phone: [facility] Work Phone: 12-20-2020 08:33-0400 Body height 172.72 cm Cortney Car Work Phone: [facility] Work Phone: 12-20-2020 08:33-0400 Body mass index (BMI) [Ratio] 26.91 kg/m2 Cortney Car Work Phone: [facility] Work Phone: 12-20-2020 08:33-0400 Body surface area Derived from formula 1.94 m2 Cortney Car Work Phone: [facility] Work Phone: 12-20-2020 08:33-0400 Body weight 80.29 kg Cortney Car Work Phone: [facility] Work Phone: 12-20-2020 08:33-0400 Diastolic blood pressure 74 mm[Hg] Cortney Car Work Phone: [facility] Work Phone: 12-20-2020 08:33-0400 Heart rate 78 /min Cotrney Car Work Phone: [facility] Work Phone: 12-20-2020 08:33-0400 SaO2% (BldA) [Mass fraction] 97 % Cortney Car Work Phone: [facility] Work Phone: 12-20-2020 08:33-0400 Systolic blood pressure 104 mm[Hg] Cortney Car Work Phone: [facility] Work Phone: Encounters Encounter Date Encounter Type Care Provider Facility Start: 10-11-2022 ambulatory Ms. Cortney Buenoenhall Facility:[id number] Start: 10-11-2022 Patient encounter procedure Cortney Car Work Phone: [facility] Work Phone: Start: 10-09-2022 Patient encounter procedure Cortney Car Work Phone: [facility] Work Phone: Start: 10-06-2022 PTFUADULT4, Provider : Tor Jaimes, Status: Pen, Time: 2:30 PM Cortney Car Work Phone: [facility] Work Phone: Start: 10-04-2022 Patient encounter procedure [facility] Work [facility]: Start: 10-04-2022 ambulatory Ms. Cortney Car Facility:[id number] Start: 09-27-2022 Patient encounter procedure Cortney Car Work Phone: [facility] Work Phone: Start: 09-25-2022 ambulatory Ms. Cortney Car Facility:[id number] Start: 09-25-2022 Patient encounter procedure Cortney Car [facility] Work Phone: Start: 09-22-[address] Tristan Fragoso Facility:[id number] Start: 09-22-2022 Patient encounter procedure Cortney Car Work Phone: [facility] Work Phone: Start: 09-18-2022 Patient encounter procedure Cortney Car Work Phone: [facility] Work Phone: Start: 09-18-[address] Tristan Fragoso Facility:[id number] Start: 09-15-2022 Patient encounter procedure Cortney Car Work Phone: [facility] Work Phone: Start: 09-15-[address] Tristan Fragoso Facility:[id number] Start: 09-12-[address] Tristan Fragoso Facility:[id number] Start: 09-12-2022 Patient encounter procedure Cortney Aponte Josep Work Phone: [facility] Work Phone: Start: 09-08-2022 Patient encounter procedure Cortney Aponte Josep Work Phone: [facility] Work Phone: Start: 09-08-[address] Tristan Fragoso Facility:[id number] Start: 09-01-2022 Patient encounter procedure Cortney Aponte Josep Work Phone: [facility] Work Phone: Start: 09-01-[address] Tristan Fragoso Facility:[id number] Start: 08-28-2022 Patient encounter procedure Cortney Aponte Josep Work Phone: [facility] Work Phone: Start: 08-28-[address] Tristan Fragoso Facility:[id number] Start: 07-25-2022 Chart Update Cortney Aponte Liliya veto Work Phone: [facility] Work Phone: Start: 07-21-2022 ambulatory Ms. Cortney graham Josep Facility:[id number] Start: 07-05-2022 AUDIT Cortney Aponte Liliya veto Work Phone: [facility] Work Phone: Start: 06-29-2022 Office outpatient visit 25 minutes Cortney Aponte Josep Work Phone: [facility] Work Phone: Start: 06-29-2022 Patient encounter procedure Cortney Aponte Josep Work Phone: [facility] Work Phone: Start: 06-29-2022 ambulatory Ms. Cortney Car Facility:[id number] Start: 05-31-2022 ambulatory Ms. Cortney Car Facility:[id number] Start: 05-31-2022 Office outpatient visit 25 minutes Cortney Car Work Phone: [facility] Work Phone: Start: 05-31-2022 Patient encounter procedure Cortney Car Work Phone: [facility] Work Phone: Start: 03-27-2022 ambulatory MICHAEL ANNE [facility] Start: 08-18-2021 Office outpatient visit 25 minutes Cortney Car Work Phone: [facility] Work Phone: Start: 08-18-2021 ambulatory Ms. Cortney Car Facility:[id number] Start: 08-10-2021 End: 08-10-2021 Emergency department patient visit [facility] Start: 05-05-2021 Office outpatient visit 25 minutes Cortney Car Work Phone: [facility] Work Phone: Start: 05-05-2021 Patient encounter procedure Cortney Car Work Phone: [facility] Work Phone: Start: 04-19-2021 Chart Update Cortney laws Work Phone: [facility] Work Phone: Start: 04-13-2021 COLON, Provider: Toni Peter, Status: Pen, Time: 8:00 AM Cortney Car Work Phone: [facility] Work Phone: Start: 04-11-2021 Chart Update Cortney laws Work Phone: [facility] Work Phone: Start: 03-17-2021 Office outpatient ne w 45 minutes Cortney Car Work Phone: [facility] Work Phone: Start: 01-05-2021 Office outpatient visit 25 minutes Cortney Car Work Phone: [facility] Work Phone: Start: 03-28-2019 End: 04-01-2019 Patient encounter procedure CORTNEY BUENOENHALL [facility] Start: 10-15-2018 Patient encounter procedure CORTNEY CAR Facility:[facility] Start: 10-14-2018 Patient encounter procedure CORTNEYCARLOS MANUEL CAR Facility:[facility] Start: 09-20-2018 End: 09-21-2018 Patient encounter procedure Josee Kingston Facility:[facility] Start: 07-31-2018 End: 08-01-2018 Patient encounter procedure Josee Kingston Facility:[facility] Start: 05-24-2018 End: 05-24-2018 Patient encounter procedure Jesse Cui Facility:[facility] Start: 04-11-2018 End: 04-12-2018 Patient encounter procedure Jesse Cui Facility:[facility] Start: 03-18-2018 End: 05-09-2018 Patient encounter procedure Jesse Cui Facility:[facility] Start: 03-14-2018 End: 03-14-2018 Patient encounter procedure Josh Du Facility:[facility] Start: 03-07-2018 End: 03-08-2018 Patient encounter procedure Jesse Cui Facility:[facility] Start: 03-05-2018 Patient encounter Sarina Rojas [facility] Start: 02-28-2018 Patient encounter procedure Sarina Rojas Facility:[facility] Start: 02-21-2018 End: 02-22-2018 Patient encounter procedure Sarina Rojas Facility:[facility] Start: 02-04-2018 End: 02-05-2018 Patient encounter procedure CORTNEY CAR Facility:[facility] Procedures Date Procedure Procedure Detail Performing Clinician Start: 08-17-2022 Arthroscopy of shoulder Cortney Car Work Phone: Plan of Treatment Date Care Activity Detail Author Start: 12-28-2022 FUV, Provider: Cortney Car, Status: Pen, Time: 9:00 AM FUV, Provider: Cortney Car, Status: Pen, Time: 9:00 AM [facility] Work Phone: Start: 10-09-2022 PTRECHADUL, Provider: Tor Jaimes, Status: Pen, Time: 5:00 PM PTRECHADUL, Provider: Tor Jaimes, Status: Pen, Time: 5:[address] [facility] Work Phone: Start: 10-06-2022 PTFUADULT4, Provider: Tor Jaimes, Status: Pen, Time: 2:30 PM PTFUADULT4, Provider: Tor Jaimes, Status: Pen, Time: 2:[address]: Start: 10-04-2022 PTFUADULT4, Provider: Tor Jaimes, Status: Pen, Time: 5:00 PM PTFUADULT4, Provider: Tor Jaimes, Status: Pen, Time: 5:[address] [facility] Work Phone: Start: 09-27-2022 PTFUADULT3, Provider: Tor Jaimes, Status: Pen, Time: 4:30 PM PTFUADULT3, Provider: Tor Jaimes, Status: Pen, Time: 4:[address] [facility] Work Phone: Start: 09-25-2022 PTFUADULT4, Provider: Clary Navarro, Status: Pen, Time: 5:00 PM PTFUADULT4, Provider: Clary Navarro, Status: Pen, Time: 5:00 PM [facility]: Start: 09-22-2022 PTFUADULT4, Provider: Tor Jaimes, Status: Pen, Time: 2:30 PM PTFUADULT4, Provider: Tor Jaimes, Status: Pen, Time: 2:30 PM [facility] Work [facility]: Start: 09-18-2022 PTFUADULT4, Provider: Clary Navarro, Status: Pen, Time: 5:00 PM PTFUADULT4, Provider: Clary Navarro, Status: Pen, Time: 5:00 PM [facility]: Start: 09-15-2022 PTFUADULT4, Provider: Tor Jaimes, Status: Pen, Time: 2:30 PM PTFUADULT4, Provider: Tor Jaimes, Status: Pen, Time: 2:30 PM [facility]: Start: 09-12-2022 PTFUADULT4, Provider: Aydee Aguayo, Status: Pen, Time: 5:00 PM PTFUADULT4, Provider: Aydee Aguayo, Status: Pen, Time: 5:00 PM [facility]: Start: 09-08-2022 PTFUADULT4, Provider: Tor Jaimes, Status: Pen, Time: 1:15 PM PTFUADULT4, Provider: Tor Jaimes, Status: Pen, Time: 1:15 PM [facility]: Start: 09-04-2022 PTFUADULT4, Provider: Clary Navarro, Status: Pen, Time: 5:00 PM PTFUADULT4, Provider: Clary Navarro, Status: Pen, Time: 5:00 PM [facility]: Start: 09-01-2022 PTFUADULT3, Provider: Tor Jaimes, Status: Pen, Time: 2:15 PM PTFUADULT3, Provider: Tor Jaimes, Status: Pen, Time: 2:15 PM [facility] Work [facility]: Start: 06-29-2022 FUV, Provider: Cortney Car, Status: Pen, Time: 9:00 AM FUV, Provider: Cortney Car, Status: Pen, Time: 9:00 AM [facility] Work Phone: Start: 08-18-2021 FUV, Provider: Toni Peter, Status: Pen, Time: 3:30 PM FUV, Provider: Toni Peter, Status: Pen, Time: 3:30 PM [facility] [facility] Work Phone: Start: 08-18-2021 Patient encounter procedure [facility] Start: 07-01-2021 FUV, Provider: Josee Kingston, Status: Pen, Time: 3:40 PM FUV, Provider: Josee Kingston, Status: Pen, Time: 3:40 PM [facility] Work Phone: Start: 05-05-2021 FUV, Provider: Toni Peter, Status: Pen, Time: 10:15 AM FUV, Provider: Toni Peter, Status: Pen, Time: 10:15 AM [facility] Work Phone: Start: 02-07-2021 FUV, Provider: Cortney Car, Status: Pen, Time: 9:20 AM FUV, Provider: Cortney Car, Status: Pen, Time: 9:20 AM [facility] Work Phone: Start: 01-27-2021 COLON, Provider: Josh Du, Status: Pen, Time: 9:30 AM COLON, Provider: Josh Du, Status: Pen, Time: 9:30 AM [facility] Work Phone: H/O: surgery History of lumpe ctomy of left breast [facility] History of appendectomy History of append ectomy [facility] History of colonoscopy History of colonos copy [facility] Immunizations Immunization Date Immunization Notes Care Provider Rhiannon contreras 05-31-2022 influenza, injectabl e, quadrivalent, preservative free; Translations: [Flulaval Quadrivalent 0.5 ML Intramuscular Suspension Prefilled Syringe] Cortney Car Work Phone: [facility] Work Phone: Payers Date Payer Category Payer Unknown [id number] 2018 Worker's Compensation 2018 Unknown 1971 Unknown [id number] 2.16.84 0.1.655990.3.579.2 1971 Unknown [id number] 2.16.84 0.1.573085.3.579.2 1971 Unknown [id number] 2.16.84 0.1.126252.3.579.2 1971 Unknown [id number] 2.16.84 0.1.360097.3.579.2 1971 Unknown [id number] 2.16.84 0.1.638798.3.579.2 1971 Unknown [id number] 2.16.84 0.1.984958.3.579.2 1971 Unknown [id number] 2.16.84 0.1.342720.3.579.2 1971 Unknown [id number] 2.16.84 0.1.918802.3.579.2 1971 Unknown [id number] 2.16.84 0.1.510183.3.579.2 1971 Unknown [id number] 2.16.84 0.1.057755.3.579.2 1971 Unknown [id number] 2.16.84 0.1.166697.3.579.2.7 1971 Unknown [id number] 2.16.84 0.1.935143.3.579.2. 1971 Unknown [id number] 2.16.84 0.1.816671.3.579.2.7 1971 Unknown [id number] 2.16.8 40.1.554267.3.579.2. 1971 Unknown [id number] 2.16. 840.1.540906.3.579.2.903 1971 Unknown [id number] 2.16. 840.1.394324.3.579.2.3 1971 Unknown [id number] 2.16. 840.1.372373.3.579.2.356 1971 Unknown [id number] 2.16. 840.1.232555.3.579.2.356 1971 Unknown [id number] 2.16. 840.1.935045.3.579.2.356 1971 Unknown [id number] 2.16.8 40.1.639520.3.579.2.1068 1971 Unknown [id number] 2.16.8 40.1.507976.3.579.2.1068 1971 Unknown [id number] 2.16.8 40.1.879753.3.579.2.1068 1971 Unknown [id number] 2.16.8 40.1.276883.3.579.2.1068 1971 Unknown [id number] 2.16.8 40.1.054001.3.579.2.1068 1971 Unknown [id number] 2.16.8 40.1.056287.3.579.2.1068 1971 Unknown [id number] 2.16.8 40.1.450400.3.579.2.1068 1971 Unknown [id number] 2.16.8 40.1.158836.3.579.2.9 1971 Unknown [id number] 2.16.8 40.1.990790.3.579.2.1068 1971 Unknown [id number] 2.16.8 40.1.938465.3.579.2.1068 1971 Unknown [id number] 2.16.8 40.1.647680.3.579.2.1068 Unknown [id number] Unknown [id number] Social History Date Type Detail Facility No alcohol use No alcohol use [facility] Work Phone: Tobacco smoking consumption unknown [facility] Clinical Notes 04-13-2021 to 08-17-2022 Note Date & Type Note Facility 08-17-2022 History of Present illness Narrative S/P R RTCR done 08/17/22. No script/protoc ol with eval. The patient arrived with post surg pillow brace in place. The patient's daughter shown flexion/ER PROM today. The patient was instructed to obtain protocol for home PROM. CONTINUE PER DR PROTOCOL.Clinical Presentation: Stable and/or uncomplicated characteristics.Level of Complexity: lowProblem List: activity limitations, ADLs/IADLs/self care skills, decreased functional level, decreased knowledge of HEP, decreased knowledge of precautions, pain, range of motion/joint mobility and strength. [facility] Work Phone: 04-13-2021 History of Present illness Narrative Anita is seen today in follow-up. Underwent colonoscopy back in April for chronic diarrhea biopsies at that time were unremarkable. She was initially placed on Elavil which she could not tolerate and given a sample of Bentyl which made her feel too sleepy. We did attempt to treat her with magnesium oxide for her constipation symptoms she developed restless leg syndrome. Overall her bowels are doing better since colonoscopy she is averaging 4 small bowel movements daily. She denies any abdominal cramping at this time and feels like this is her new normal. [facility] Work Phone: History of Present illness Narrative Presents today for [facility] LAB F/U. C/O RIGHT KNEE PAIN X 1 WEEK modifying factors consists of DENIES INJURY associated symptoms consist of SWELLING prior treatment consists of medication NONEC/O TOE NAIL FUNGUS TO ALL TOE NAILS X SEVERAL MONTHS - YEAR modifying factors consists of NONE associated symptoms consist of YELLOW THICK NAILS prior treatment consists of medication TOPICAL OTC MEDPREDIABETES- HGA1C 6.0%. DIET MODIFICATIONS DISCUSSEDLIPIDS- DIET MODIFICATIONS DISCUSSEDANA POSITIVE - WILL REFER TO IZA HESTER. MIGUEL ANGEL [facility] Work Phone: History of Present illness Narrative Presents today for [facility] LAB F/U. C/O RIGHT KNEE PAIN X 1 WEEK modifying factors consists of DENIES INJURY associated symptoms consist of SWELLING prior treatment consists of medication NONEC/O TOE NAIL FUNGUS TO ALL TOE NAILS X SEVERAL MONTHS - YEAR modifying factors consists of NONE associated symptoms consist of YELLOW THICK NAILS prior treatment consists of medication TOPICAL OTC MEDPREDIABETES- HGA1C 6.0%. DIET MODIFICATIONS DISCUSSEDLIPIDS- DIET MODIFICATIONS DISCUSSEDANA POSITIVE - WILL REFER TO IZA COULTER- KACIE. MIGUEL ANGEL [facility] Work Phone: History of Present illness Narrative Patient is a pleasant 51-year-old female who presents for evaluation of persistent abdominal pain. 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 She went on to have 4 successful pregnancies all vaginal deliveries. She no longer has the pelvic pain she did prior to her endometriosis diagnosis and attributes that to the hormone therapy she took while recovering from breast cancer. She is now 6 years out from her left modified mastectomy and is disease-free. She is no longer followed by her oncologist and has yearly mammograms done by her family doctor.She admits that she her brother has had multiple polyps and there may be a family history of colon cancer. She has had problems with constipation since a young age and would often go 5 to 7 days without a bowel movement that have a hard stool followed by cramping and massive diarrhea. This pattern is as changes see his age to the point where it is happening more frequently and she is occasional diarrhea which will last for 2 to 3 days. She denies any rectal bleeding and notices no persistent abdominal pain. She does have intense cramping before each bowel movement. She was combating this with fiber but stopped taking fiber supplements when she developed chronic diarrhea as she thought it would make symptoms worse.She denies any fevers chills or night sweats and denies any rapid weight loss [facility] Work Phone: History of Present illness Narrative Anita is seen today in follow-up. Underwent colonoscopy. Colonoscopy revealed no evidence of inflammatory bowel disease ileal and colonic biopsies were unremarkable. Historically had multiple laparotomies related to endometriosis. Despite this was able to successfully carry 4 pregnancies. She admits that her symptoms of cramping were somewhat improved with Metamucil but stopped therapy since stopping therapy of cramping and bowel habits have returned back to normal. She is intermittently constipated and will have diarrhea preceded by cramping. She denies any rectal bleeding. [facility] Work Phone: History of Present illness Narrative Patient presents today for...1 to review labs- not donevit D was ordered2 med checkvit D - taking but admits forgets at times - not taking rx but OTC as this has not been checked with labs in sometime3 GI issuespt states can go few days to 1 week without BM and then when she does have BM she notes a lot of back, abd, hip pain. pt states she can sit on the toilet for over an hour and fill the toilet and its soft but often becomes straight liquid. She notes cramping like child labor pains when she does have BM and knows stress is a big trigger. she has been dx with IBS and states when she was on fiber sx were better but not fiber isn't helping at all. pt denies blood in her stools. she states her brother has a lot of GI issues but not sure what he was dx with. Later in the visit she mentions he has had polyps but they were benign. she also mentioned her daughter has been diagnosed with GI issues too but unsure what4 R knee painpt states actually thinks its all jointspt states swelling on and off for a monthshe does have fam hx of RAcardio concerns x 2 months but are improvingheart palpmoving up the steps with SOBsymptoms worse when lying in bedpt does admit to inc anxietyshe does have hx ofshe does have caffeine - 3-4 cups /day5 onychomycosisshe has used many topical and improve but never fully resolves. she denies treating her shoes so we discussed that she can be re-exposing herself [facility] Work Phone: History of Present illness Narrative Patient presents today for...1 to review labs- not done2 med checkvit D - has been off for sometimejoint pain - she has been dx with OA but questioned of auto - immune issue edwin as some of her testing was pos. she was referred to rheum but did not follow with them and does not wish to at this time3 cardio concerns x 2 months but are improvingheart palpSOBE with stepssymptoms worse when lying in bedpt does admit to inc anxietyshe does have caffeine - 3-4 cups /dayshe did have some leg cramps as well and started supplements and overall feels symptoms improvingshe admits to poor water intakeshe denies CP4 Gen skin checkpt notes moles changing over the years and nothing suspcious at this time but would like full body gen skin checkPreventative testingmammoPAPDEXAcolonoscopy [facility] Work Phone: History of Present illness Narrative Patient presents today for...1 to review labs- not done2 med checkvit D - has been off for sometimejoint pain - she has been dx with OA but questioned of auto - immune issue edwin as some of her testing was pos. she was referred to rheum but did not follow with them and does not wish to at this timeR shoulder - pt is [facility] - may need another injection - unfort this is affecting sleep3 cardio concerns x 2 months but are improvingheart palpSOBE with stepssymptoms worse when lying in bedpt does admit to inc anxietyshe does have caffeine - 3-4 cups /dayshe did have some leg cramps as well and started supplements and overall feels symptoms improvingshe admits to poor water intakeshe denies CP4 Gen skin checkpt notes moles changing over the years and nothing suspcious at this time but would like full body gen skin checkPreventative testingmammo- mar 2021 - -woosterPAP - woosterDEXA -colonoscopy - apr 2021- dr peter - repeat in 10 years [facility] Work Phone: History of Present illness Narrative Patient presents today for...1 to review labs-2 med checkvit D - has been off for sometimejoint pain - she has been dx with OA but questioned of auto - immune issue edwin as some of her testing was pos. she was referred to rheum but did not follow with them and does not wish to at this timeR shoulder - pt is [facility] - may need another injection - unfort this is affecting sleep3 cardio concerns x 2 months but are improvingheart palpSOBE with stepssymptoms worse when lying in bedpt does admit to inc anxietyshe does have caffeine - 3-4 cups /dayshe did have some leg cramps as well and started supplements and overall feels symptoms improvingshe admits to poor water intakeshe denies CPwe discussed cardio work up last visit but felt this was more anxiety related to started on buspar and she states overall this does help with her symptoms and they are less freq.4 Gen skin checkpt notes moles changing over the years and nothing suspicious at this time but would like full body gen skin checkshe does have a visit set with [id number] testingmammo- mar 2021 - -woosterPAP - woosterDEXA -colonoscopy - apr 2021- dr peter - repeat in 10 years [facility] Work Phone: History of Present illness Narrative Patient identity confirmed today with name/. PROM only done today per protocol; PROM to 92 flex; 30 ER; repeated relaxation devices performed throughout session; the patient preferred to ice at home. [facility] Work Phone: History of Present illness Narrative Patient identity confirmed today with name/. the patient's shown home PROM; reviewed pendulum and pulleys today. [facility] Work Phone: History of Present illness Narrative Patient identified by name and DOBPatien t appropriately challenged. Patient demo's painful motions throughout session, but able to tolerate with pain on descending with PROM flexion. Patient demo's difficulty with pulleys this date d/t increased pain. Incorporated AAROM with patient aaron'g fair tolerance throughout motions. [facility] Work Phone: History of Present illness Narrative Patient identity confirmed today with name/. the patient displays limited ability to relax with AAROM and this may result in undue shldr stress and resultant sx (the pillow has been removed per Dr OSCAR); did not perform AAROM today due to soreness today-advised the patient to perform only pendulum, pulleys and PROM at home; some clinic PROM partially done prone seemed to help the shldr relax today. [facility] Work Phone: History of Present illness Narrative Patient tolerated treatment without pain but has tension/tightness in right UE. Performed AAROM as per protocol. Patient reports STW helped decrease tension and made stretches tolerable. Continue with right UE protocol. Continue with ROM/stretches/STW to improve ROM to improve mobility. [facility] Work Phone: History of Present illness Narrative Patient identity confirmed today with name/. the patient is able to relax more fully with PROM; reviewed H abd pROM direction with today. [facility] Work Phone: History of Present illness Narrative Patient tolerated treatment without pain/discomfort. Reports compliance with HEP daily. Added wall washing and flexion, abduction stretches across plinth with good tolerance. Ended with PROM/STW to right shoulder region. Continue with right shoulder ther-ex per protocol to improve ROM. [facility] Work Phone: History of Present illness Narrative Patient identity confirmed today with name/. anticipate progression per protocol next visit. [facility] Work Phone: History of Present illness Narrative Patient identity confirmed today with name/. advised the patient to continue flexion/Habd PROM and pulleys only for the next week and to ice the shdr/elbow; this therapist feels that typing at work has been a main sx exacerbator. [facility] Work Phone: Reason for visit Narrative Initial Evaluation . S/P R RTCR.Referred by: [place] [facility] Work Phone: Summary Purpose Family History Unknown Family Member Name Dates Details Family history of hepatic ci rrhosis: Mother, Brother(V18.59, Z83.79) Status:Active Primary malignant neoplasm o f female breast: Grandparent Status:Active Unknown Family Member Name Dates Details Family history of hepatic ci rrhosis: Mother, Brother(V18.59, Z83.79) Status:Active Primary malignant neoplasm o f female breast: Grandparent Status:Active Unknown Family Member Name Dates Details FH: colonic polyps: Brother( V18.51, Z83.71) Status:Active Primary malignant neoplasm o f female breast: Grandparent Status:Active Family history of hepatic ci rrhosis: Mother, Brother(V18.59, Z83.79) Status:Active Unknown Family Member Name Dates Details Family history of hepatic ci rrhosis: Mother, Brother(V18.59, Z83.79) Status:Active Primary malignant neoplasm o f female breast: Grandparent Status:Active FH: colonic polyps: Brother( V18.51, Z83.71) Status:Active Unknown Family Member Name Dates Details Family history of hepatic ci rrhosis: Mother, Brother(V18.59, Z83.79) Status:Active Primary malignant neoplasm o f female breast: Grandparent Status:Active FH: colonic polyps: Brother( V18.51, Z83.71) Status:Active Unknown Family Member Name Dates Details Family history of hepatic ci rrhosis: Mother, Brother(V18.59, Z83.79) Status:Active Primary malignant neoplasm o f female breast: Grandparent Status:Active FH: colonic polyps: Brother( V18.51, Z83.71) Status:Active Unknown Family Member Name Dates Details Family history of hepatic ci rrhosis: Mother, Brother(V18.59, Z83.79) Status:Active Primary malignant neoplasm o f female breast: Grandparent Status:Active FH: colonic polyps: Brother( V18.51, Z83.71) Status:Active Unknown Family Member Name Dates Details Family history of hepatic ci rrhosis: Mother, Brother(V18.59, Z83.79) Status:Active Primary malignant neoplasm o f female breast: Grandparent Status:Active FH: colonic polyps: Brother( V18.51, Z83.71) Status:Active Unknown Family Member Name Dates Details Family history of hepatic ci rrhosis: Mother, Brother(V18.59, Z83.79) Status:Active Primary malignant neoplasm o f female breast: Grandparent Status:Active FH: colonic polyps: Brother( V18.51, Z83.71) Status:Active Unknown Family Member Name Dates Details Family history of hepatic ci rrhosis: Mother, Brother(V18.59, Z83.79) Status:Active Primary malignant neoplasm o f female breast: Grandparent Status:Active FH: colonic polyps: Brother( V18.51, Z83.71) Status:Active Unknown Family Member Name Dates Details Family history of hepatic ci rrhosis: Mother, Brother(V18.59, Z83.79) Status:Active Primary malignant neoplasm o f female breast: Grandparent Status:Active FH: colonic polyps: Brother( V18.51, Z83.71) Status:Active Unknown Family Member Name Dates Details Family history of hepatic ci rrhosis: Mother, Brother(V18.59, Z83.79) Status:Active Primary malignant neoplasm o f female breast: Grandparent Status:Active FH: colonic polyps: Brother( V18.51, Z83.71) Status:Active Unknown Family Member Name Dates Details Family history of hepatic ci rrhosis: Mother, Brother(V18.59, Z83.79) Status:Active Primary malignant neoplasm o f female breast: Grandparent Status:Active FH: colonic polyps: Brother( V18.51, Z83.71) Status:Active Unknown Family Member Name Dates Details Family history of hepatic ci rrhosis: Mother, Brother(V18.59, Z83.79) Status:Active Primary malignant neoplasm o f female breast: Grandparent Status:Active FH: colonic polyps: Brother( V18.51, Z83.71) Status:Active Unknown Family Member Name Dates Details Family history of hepatic ci rrhosis: Mother, Brother(V18.59, Z83.79) Status:Active Primary malignant neoplasm o f female breast: Grandparent Status:Active FH: colonic polyps: Brother( V18.51, Z83.71) Status:Active Unknown Family Member Name Dates Details Family history of hepatic ci rrhosis: Mother, Brother(V18.59, Z83.79) Status:Active Primary malignant neoplasm o f female breast: Grandparent Status:Active FH: colonic polyps: Brother( V18.51, Z83.71) Status:Active Unknown Family Member Name Dates Details Family history of hepatic ci rrhosis: Mother, Brother(V18.59, Z83.79) Status:Active Primary malignant neoplasm o f female breast: Grandparent Status:Active FH: colonic polyps: Brother( V18.51, Z83.71) Status:Active Unknown Family Member Name Dates Details Family history of hepatic ci rrhosis: Mother, Brother(V18.59, Z83.79) Status:Active Primary malignant neoplasm o f female breast: Grandparent Status:Active FH: colonic polyps: Brother( V18.51, Z83.71) Status:Active Unknown Family Member Name Dates Details Family history of hepatic ci rrhosis: Mother, Brother(V18.59, Z83.79) Status:Active Primary malignant neoplasm o f female breast: Grandparent Status:Active FH: colonic polyps: Brother( V18.51, Z83.71) Status:Active Unknown Family Member Name Dates Details Family history of hepatic ci rrhosis: Mother, Brother(V18.59, Z83.79) Status:Active Primary malignant neoplasm o f female breast: Grandparent Status:Active FH: colonic polyps: Brother( V18.51, Z83.71) Status:Active Unknown Family Member Name Dates Details Family history of hepatic ci rrhosis: Mother, Brother(V18.59, Z83.79) Status:Active Primary malignant neoplasm o f female breast: Grandparent Status:Active FH: colonic polyps: Brother( V18.51, Z83.71) Status:Active Unknown Family Member Name Dates Details Family history of hepatic ci rrhosis: Mother, Brother(V18.59, Z83.79) Status:Active Primary malignant neoplasm o f female breast: Grandparent Status:Active FH: colonic polyps: Brother( V18.51, Z83.71) Status:Active Unknown Family Member Name Dates Details Family history of hepatic ci rrhosis: Mother, Brother(V18.59, Z83.79) Status:Active Primary malignant neoplasm o f female breast: Grandparent Status:Active FH: colonic polyps: Brother( V18.51, Z83.71) Status:Active Unknown Family Member Name Dates Details Family history of hepatic ci rrhosis: Mother, Brother(V18.59, Z83.79) Status:Active Primary malignant neoplasm o f female breast: Grandparent Status:Active FH: colonic polyps: Brother( V18.51, Z83.71) Status:Active Unknown Family Member Name Dates Details Family history of hepatic ci rrhosis: Mother, Brother(V18.59, Z83.79) Status:Active Primary malignant neoplasm o f female breast: Grandparent Status:Active FH: colonic polyps: Brother( V18.51, Z83.71) Status:Active Unknown Family Member Name Dates Details Family history of hepatic ci rrhosis: Mother, Brother(V18.59, Z83.79) Status:Active Primary malignant neoplasm o f female breast: Grandparent Status:Active FH: colonic polyps: Brother( V18.51, Z83.71) Status:Active Advance Directives No Advanced Directives Records FoundNo Advanced Directives Records FoundNo Advanced Directives Records FoundNo Advanced Directives Records FoundNo Advanced Directives Records FoundNo Advanced Directives Records FoundNo Advanced Directives Records Found Chief Complaint RIGHT KNEE AND RIGHT UPPER THIGH SWELLING X 1 MONTH. RIGHT KNEE PAIN AT END OF THE DAY OR WHEN KNEELING DOWN. HAD LABS DONERIGHT KNEE AND RIGHT UPPER THIGH SWELLING X 1 MONTH. RIGHT KNEE PAIN AT END OF THE DAY OR WHEN KNEELING DOWN. HAD LABS DONENPV in office today for intermittent diarrhea and constipation, barely can make it to the bathroom for BM 1 BM weekly, Previously would take 45 minutes to have BM and then have diarrhea, bloating, gassiness. Brother polyps removal and bowel issues.FUV in office today for diarrhea, bloating. Patient states the magnesium citrate was causing her tostay awake at night so she stopped taking it and her sleeping improvedFUV in office today for diarrhea, bloating. Patient states the magnesium citrate was causing her tostay awake at night so she stopped taking it and her sleeping improvedFUV in office today c/o diarrhea is feeling a little bit better overall.CHECK UP- PT HAVING COME HEART CONCERNS. WOULD ALSO LIKE TO BE REFERRED TO GET A SKIN CHECK CHECK UP- PT HAVING COME HEART CONCERNS. WOULD ALSO LIKE TO BE REFERRED TO GET A SKIN CHECK PT HERE TODAY FOR F/U LAB RESULTS. PT HAS NO CONCERNS TODAYPT HERE TODAY FOR F/U LAB RESULTS. PT HAS NO CONCERNS TODAYPT HERE TODAY FOR F/U LAB RESULTS. PT HAS NO CONCERNS TODAY Additional Source Comments INFORMATION SOURCE (unrecogn ized section and content) DATE CREATED AUTHOR AUTHOR'S ORGANIZ ATION 10/16/2018 [facility] DATE CREATED AUTHOR AUTHOR'S ORGANIZ ATION 04/01/2019 [facility] DATE CREATED AUTHOR AUTHOR'S ORGANIZ ATION 03/28/2022 [facility] DATE CREATED AUTHOR AUTHOR'S ORGANIZ ATION 07/03/2022 [facility] DATE CREATED AUTHOR AUTHOR'S ORGANIZ ATION 10/13/2022 [employer] DATE CREATED AUTHOR AUTHOR'S ORGANIZ ATION 10/14/2022 [facility] <item> Privacy Markings (unrecogniz ed section and content) Section Author: Joycelyn Ndiaye PROHIBITION ON REDISCLOSURE OF CONFIDENTIAL INFORMATION This notice accompanies a disclosure of information concerning a client made to you with the consent of such client. FOR RECORDS PERTAINING TO PATIENTS WHO ARE OR HAVE BEEN ENROLLED IN A CHEMICAL DEPENDENCY/SUBSTANCEABUSE PROGRAM, SOME INFORMATION MAY BE OMITTED. This clinical summary was aggregated from multiple sources. Caution should be exercised in using it in the provision of clinical care. This summary normalizes information from multiple sources, and as a consequence, information in this document may materially change the coding, format and clinical context of patient data. In addition, data may be omitted in some cases. CLINICAL DECISIONS SHOULD BE BASED ON THE PRIMARY CLINICAL RECORDS. [facility] provides no warranty or guarantee of the accuracy or completeness of information in this document.
== END | disposition home or self-care (01) ==
LOC: OPBI 10:30
PROVIDERS: PCP Physician Assistant Medical; Referring Provider Physician Assistant Medical; Visit Provider Physician Assistant Medical
DX: Z12.31 Encounter for screening mammogram for malignant neoplasm of breast (principal); Z85.3 Personal history of malignant neoplasm of breast
CPT/HCPCS: 77063; 77067

== ENCOUNTER → 2023-12-28 | Outpatient (CLI) | payer OTHER, SELFPAY | END | disposition home or self-care (01) | LOC: LABSPEC 17:07 | PROVIDERS: PCP Physician Assistant Medical; Referring Provider Obstetrics & Gynecology; Visit Provider Obstetrics & Gynecology | DX: Z12.4 Encounter for screening for malignant neoplasm of cervix (principal); N89.8 Other specified noninflammatory disorders of vagina | CPT/HCPCS: 87070; 87205; 87624; 88175; G0145 ==

== ENCOUNTER → 2024-11-07 | Outpatient (CLI) | payer BC, SELFPAY ==
--- NOTE | 2024-11-07 12:00 | BI_ITS ---
EXAM: SCRN MAMM (CAD)W/EDWARD BILAT 11/07/2024 CLINICAL HISTORY: F, Age 54 y/o , SCREENING FOR BREAST CANCER TECHNIQUE: Bilateral screening digital breast tomosynthesis with 2D and 3D images. Computer aided detection. COMPARISON: Prior exam(s) dated 08/24/2023. FINDINGS: TISSUE DENSITY: The breast tissue is heterogenously dense, which may obscure small masses. The mammogram demonstrates that the patient has dense breasts. Supplemental screening with whole breast ultrasound or MRI may be considered for further evaluation. Bilateral Breast Mammographic Findings: RIGHT BREAST: There is a focal asymmetry in the upper-outer right breast at middle depth. LEFT BREAST: There is focal asymmetry with associated architectural distortion in the central outer left breast at posterior depth. BI/SCRN MAMM (CAD)W/EDWARD BILAT IMPRESSION: 1. The focal asymmetry in the upper-outer right breast at middle depth require s further evaluation. Recommend diagnostic mammogram of the right breast and ultrasound on the day of diagnostic if indica alexis. 2. The focal asymmetry with associated architectural distortion in the central outer left breast at posterior depth requires further evaluation. Recommend diagnostic mammogram of the left breast and ultr asound on the day of diagnostic if indicated. Right Breast: BIRADS 0 Incomplete: Need additional imaging evaluation and/or pr ior mammograms for comparison.. Left Breast: BIRADS 0 Incomplete: Need additional imaging evaluation and/or pr ior mammograms for comparison.. OVERALL FINAL ASSESSMENT: BIRADS 0 Incomplete: Need additional imaging evaluati on and/or prior mammograms for comparison.. RECOMMENDATION: Recommendation: Additional projections. A letter with findings and recommendations will be mailed to the patient. Reading Location: [id number]
== END | disposition home or self-care (01) ==
LOC: OPBI 12:06
PROVIDERS: PCP Physician Assistant Medical; Referring Provider Nurse Practitioner Women's Health; Visit Provider Nurse Practitioner Women's Health
DX: Z12.31 Encounter for screening mammogram for malignant neoplasm of breast (principal)
CPT/HCPCS: 77063; 77067

== ENCOUNTER → 2024-11-21 | Outpatient (CLI) | payer SELFPAY ==
--- NOTE | 2024-11-21 11:06 | US_ITS ---
EXAM: DIAG MAMM W/CAD, BILAT; BREAST LIMITED UNILATERAL; BILAT BRST EDWARD STAND ALONE 11/21/2024 CLINICAL HISTORY: 54-year-old female presents for follow-up of the bilateral breast findings seen on the examination of 11/07/2024. Personal history of left breast cancer in 2012, status post lumpectomy, radiation and tamoxifen. TECHNIQUE: Bilateral Diagnostic digital breast tomosynthesis with 2D and 3D images. Computer aided detection. Also, targeted right breast ultrasound was performed. COMPARISON: Prior exam(s) dated 11/07/2024, 08/24/2023. FINDINGS: MAMMOGRAM: TISSUE DENSITY: The breast tissue is heterogenously dense, which may obscure small masses. The mammogram demonstrates that the patient has dense breasts. Supplemental screening with MRI may be considered for further evaluation. Bilateral Breast Mammographic Findings: Left breast: Follow-up examination performed for the focal asymmetry with associated distortion in the left breast seen on examination of 11/07/2024. On the present examination, the focal asymmetry with associated distortion in the central outer left breast at posterior depth persists. This is likely secondary to post lumpectomy changes. Otherwise, there are no suspicious findings in the left breast. Right breast: Follow-up examination performed for the focal asymmetry in the right breast seen on examination of 10/30/2024. On the present examination, the focal asymmetry in the upper-outer right breast at middle depth persist. ULTRASOUND: Right breast: Ultrasound performed of the upper-outer right breast demonstrates 3 cysts. At 11 o'clock 3 cm from the nipple the cysts measures 0.8 x 0.6 x 0.3 cm. There are 2 cysts at 10 o'clock 4 cm from the nipple, measuring 1.0 x 0.7 x 0.4 cm and 0.5 x 0.4 x 0.3 cm. Overall, these likely correlate to the mammographic finding. US/Breast Limited Unilateral IMPRESSION: 1. Benign postsurgical/post lumpectomy changes in the left breast. 2. Benign right breast cysts in the upper-outer quadrant. Right Breast: BIRADS 2 BENIGN FINDING. Left Breast: BIRADS 2 BENIGN FINDING. OVERALL FINAL ASSESSMENT: BIRADS 2 BENIGN FINDING. RECOMMENDATION: Routine annual follow-up in 1 Year A letter with findings and recommendations will be mailed to the patient. Reading Location: [facility]
== END | disposition home or self-care (01) ==
PROVIDERS: PCP Physician Assistant Medical; Referring Provider Nurse Practitioner Women's Health; Visit Provider Nurse Practitioner Women's Health
DX: R92.8 Other abnormal and inconclusive findings on diagnostic imaging of breast (principal)
CPT/HCPCS: 76642; 77062; 77066; G0279